=== PATIENT | male | born 1940 | race Caucasian/White ===

== ENCOUNTER 2022-11-05 14:47 | Emergency (ER) | payer OTHER, MEDICARE ==
[~2022-11-05] VITALS: Ht 167.6 cm; Wt 61.2 kg
[2022-11-05 14:47] VITALS: BP_SYST 116
--- NOTE | 2022-11-05 14:47 | NUR ---
BROUGHT BACK TO BED #4 AND TRIAGED. REPORT GIVEN TO LISET
[2022-11-05 15:40] LABS: BASOPHILS % (AUTO) 0.4 % (0.0-2.0); EOSINOPHILS # (AUTO) 0.1 K/uL (0.0-0.4); EOSINOPHILS % (AUTO) 1.7 % (0.0-4.0); HEMATOCRIT 40.7 % (36-54); HEMOGLOBIN 14.1 g/dL (14.0-18.0); LYMPHOCYTES % (AUTO) 24.2 % (20.5-51.5); MEAN CORPUSCULAR HEMOGLOBIN 32 pg (27-31); MEAN CORPUSCULAR HGB CONC 35 % (32-36); MEAN CORPUSCULAR VOLUME 92 fL (79.0-98.0); MONOCYTES # (AUTO) 0.9 K/uL (0.0-1.0); MONOCYTES % (AUTO) 10.5 % (1.7-9.3); NEUTROPHILS # (AUTO) 5.3 K/uL (1.8-7.7); NEUTROPHILS % (AUTO) 63.2 % (40.0-70.0); PLATELET COUNT (AUTO) 263 K/uL (130-430); RED BLOOD CELL COUNT(AUTO) 4.44 MIL/uL (4.2-6.2); WHITE BLOOD COUNT (AUTO) 8.3 K/uL (4.8-10.8)
--- NOTE | 2022-11-05 15:50 | NUR ---
ER at bedside examining patient.
[2022-11-05 15:53] LABS: ANION GAP 3 (5-15); CALCIUM 8.1 mg/dL (8.4-11.0); CHLORIDE 102 mmol/L (98-107); CREATININE 0.85 mg/dL (0.55-1.30); GLUCOSE 200 mg/dL (70-99); UREA NITROGEN, BLOOD 22 mg/dL (8-21)
--- NOTE | 2022-11-05 15:56 | NUR ---
PT BIB BY C/O OF SCROTAL PAIN. PT HAS A HISTORY OF AN aaa STENT, DM, HTN, HYPOTHYRIODISM, AND A STROKE. PT STATES THAT HE HAS BEEN FEELING PAIN FOR THE PAST 3 DAYS. DENIES RADIATING PAIN. PT IS GCS 15 EYES OPEN SPONTANEOUSLY. PT IS ORIENTED TO PERSON, PLACE, TIME, AND SITUATION. PT OBEYS COMMAND. PT DENIES VISUAL OR AUDITORY PROBLEMS. PT DENIES SOB, CHEST PAIN. PT DENIES A FEVR, CHILLS, N/V/D. PT IS IN ROOM 4 ON THE MONITOR PLAN OF CARE CONTINUES.
[2022-11-05 15:58] LABS: ALANINE AMINOTRANSFERASE 12 U/L (12-78); ALBUMIN 3.2 g/dL (3.4-4.8); ASPARTATE AMINOTRANSFERASE 16 U/L (10-37); TOTAL BILIRUBIN 0.3 mg/dL (0.0-1.0)
[2022-11-05 16:00] LABS: BILIRUBIN,URINE NEGATIVE (NEGATIVE); BLOOD, URINE NEGATIVE (NEGATIVE); CLARITY/URINE CLEAR (CLEAR); COLOR,URINE YELLOW (YELLOW); GLUCOSE,URINE 3+ (NEGATIVE); KETONES,URINE NEGATIVE (NEGATIVE); LEUKOCYTE ESTERASE ,URINE NEGATIVE (NEGATIVE); NITRITE, URINE NEGATIVE (NEGATIVE); PROTEIN URINE NEGATIVE (NEGATIVE); UROBILINOGEN,URINE 0.2 (0.2-1.0)
[2022-11-05 16:47] LABS: BACTERIA,URINE RARE /HPF (None Seen); RBC,URINE 0-3 /HPF (0-3); WBC,URINE NONE SEEN /HPF (0-3)
[2022-11-05] MEDS ORDERED: IBUP-1969 PO (17:15)
--- NOTE | 2022-11-05 17:32 | NUR ---
Patient given written and verbal discharge instructions and verbalizes understanding. ER MD discussed with patient th Rx of IBUPROFEN given. Patient educated on pain management and to follow up with PMD. Pain Scale [0]. Opportunity for questions provided and answered. Medication side effect fact sheet provided.
[2022-11-05 17:36] VITALS: BP_SYST 116
== END 2022-11-05 17:36 | disposition home or self-care (01) ==
LOC: SED 14:47
DX: N50.3 Cyst of epididymis (principal); N50.812 Left testicular pain; N50.82 Scrotal pain; Z79.899 Other long term (current) drug therapy
CPT/HCPCS: 36415; 76870-TC; 80053; 81000; 85025; 99284